=== PATIENT | male | born 1940 | race Caucasian/White ===

== ENCOUNTER 2018-03-13 10:57 | Emergency (ER) | payer OTHER, MEDICARE ==
[~2018-03-13] VITALS: Ht 167.6 cm; Wt 81.7 kg
[~2018-03-13 10:57] MED LIST: ANTIVERT25 MG PO; ASPIRIN325 PO; HYDROCODON-ACE1 EAC7 PO; TRAMADOL 50 MG50 MG PO; ZOFRAN ODT4 MG PO
[2018-03-13] MEDS ORDERED: NOHOMEMEDICATIONS (11:08)
[2018-03-13] MEDS ORDERED: ROBAXIN 750 MG750 M1 PO (11:41)
[2018-03-13] MEDS ORDERED: MEDROL4 M1 PO (11:41)
[2018-03-13 12:26] VITALS: BP 186/81
== END 2018-03-13 12:28 | disposition home or self-care (01) ==
LOC: M.ERS 10:57
DX: S39.012A Strain of muscle, fascia and tendon of lower back, initial encounter (principal); M54.16 Radiculopathy, lumbar region; Z88.0 Allergy status to penicillin; X50.1XXA Overexertion from prolonged static or awkward postures, initial encounter; Y93.H1 Activity, digging, shoveling and raking; Y92.89 Other specified places as the place of occurrence of the external cause; Y99.8 Other external cause status